=== PATIENT | female | born 2000 | race Caucasian/White ===

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

== ENCOUNTER 2019-07-11 07:50 | Emergency (ER) | payer OTHER ==
[2019-07-11 08:43] LABS: Bilirubin Negative (Negative); Blood, Urine Negative (Negative); Clarity Clear (Clear); Glucose, Urine (Dipstick) Negative (Negative); Leukocyte Negative (Negative); Nitrite Negative (Negative); Protein, Urine (Dipstick) Negative (Neg-Trace); Urobilinogen 0.2 mg/dL (Less than 2)
[2019-07-11 08:50] LABS: #Basophils 0.1 thou/uL (0.0-0.2); #Eosinphils 0.1 thou/uL (0.0-0.7); #Monocytes 0.6 thou/uL (0.11-0.59); %Eosinophils 1.2 % (0.0-10.0); %Lymphocytes 23.1 % (28.0-48.0); %Neutrophils 67.6 % (31.0-61.0); Hemoglobin 14.5 g/dL (12.0-16.0); Mean Corpuscular HGB CONC 34.2 g/dL (32.0-36.0); Mean Corpuscular Hemoglobin 30.6 pg (25.0-35.0); Mean Corpuscular Volume 89.4 fL (78.0-98.0); Mean Platelet Volume 7.6 fL (7.4-10.4); Platelet Count 243 thou/uL (130-400); RBC Distribution Width 11.7 % (11.5-14.5); Red Blood Cell (RBC) Count 4.74 mill/uL (4.00-5.20); White Blood Cell (WBC) Count 8.8 thou/uL (4.8-10.8)
--- NOTE | 2019-07-11 09:07 | ULT ---
Exam: Transabdominal and endovaginal pelvic ultrasound HISTORY:. Pelvic pain. COMPARISON: None TECHNIQUE: Transabdominal and endovaginal imaging of the pelvis is performed. Ovaries are interrogate d with grayscale, color flow, Doppler imaging and spectral wave form analysis FINDINGS: Uterus: No myometrial masses. Uterus measurin.0 x 5.8 x 5.2 cm. Endometrium: Within the endometrium, there is a gestational sac, yolk sac and pole. [place]-rump length is 0.46 cm corresponding to gestational age of 6 weeks and 1 day heart tones with a rate of 111 bpm No subchorionic hemorrhage. Free fluid: None Left ovary: Normal echotexture. Left ovary measurements: 3.8 x 2.2 x 2.2 cm Right ovary: Normal echotexture Right ovary measurement: 2.8 x 1.8 x 2.9 cm Ovarian Doppler: There is vascular flow to the left and right ovary. IMPRESSION: 1. Single intrauterine gestation with heart tones. Gestational age by crown-rump length is 6 we eks and 1 day.
== END 2019-07-11 09:26 | disposition home or self-care (01) ==
LOC: SCSER 07:50
DX: O99.89 Other specified diseases and conditions complicating pregnancy, childbirth and the puerperium (principal); M25.552 Pain in left hip; O99.341 Other mental disorders complicating pregnancy, first trimester; F41.9 Anxiety disorder, unspecified; O99.311 Alcohol use complicating pregnancy, first trimester; F17.210 Nicotine dependence, cigarettes, uncomplicated; Z3A.01 Less than 8 weeks gestation of pregnancy
CPT/HCPCS: 76856; 81003; 84702; 85025; 86900; 86901

== ENCOUNTER 2019-08-16 09:54 | Emergency (ER) | payer MEDICAID, SELFPAY ==
[2019-08-16] MEDS ORDERED: Metoclopramide HCl 10 MG TAB ONE (10:42)
== END 2019-08-16 12:17 | disposition home or self-care (01) ==
LOC: SCSER 09:54
DX: O21.9 Vomiting of pregnancy, unspecified (principal); O99.611 Diseases of the digestive system complicating pregnancy, first trimester; K21.9 Gastro-esophageal reflux disease without esophagitis; O99.341 Other mental disorders complicating pregnancy, first trimester; F41.9 Anxiety disorder, unspecified; Z87.891 Personal history of nicotine dependence; Z3A.12 12 weeks gestation of pregnancy
CPT/HCPCS: 99283; J8597

== ENCOUNTER 2019-09-20 11:06 | Emergency (ER) | payer OTHER, SELFPAY | END 2019-09-20 11:45 | disposition home or self-care (01) | LOC: SCSER 11:06 | DX: O99.512 Diseases of the respiratory system complicating pregnancy, second trimester (principal); J06.9 Acute upper respiratory infection, unspecified; O99.342 Other mental disorders complicating pregnancy, second trimester; F41.9 Anxiety disorder, unspecified; O99.612 Diseases of the digestive system complicating pregnancy, second trimester; K21.9 Gastro-esophageal reflux disease without esophagitis; Z3A.21 21 weeks gestation of pregnancy; Z87.891 Personal history of nicotine dependence | CPT/HCPCS: 99283 ==

== ENCOUNTER 2019-09-24 11:25 | Emergency (ER) | payer OTHER | END 2019-09-24 11:59 | disposition home or self-care (01) | LOC: SCSER 11:25 | DX: O99.89 Other specified diseases and conditions complicating pregnancy, childbirth and the puerperium (principal); R09.81 Nasal congestion; O99.612 Diseases of the digestive system complicating pregnancy, second trimester; K21.9 Gastro-esophageal reflux disease without esophagitis; O99.342 Other mental disorders complicating pregnancy, second trimester; F41.9 Anxiety disorder, unspecified; Z87.891 Personal history of nicotine dependence; Z3A.18 18 weeks gestation of pregnancy ==

== ENCOUNTER 2019-12-04 12:17 | Inpatient (IN) | payer OTHER ==
[2019-12-04 13:54] VITALS: BP 121/67; TEMP 98.3
[2019-12-04 13:57] VITALS: BMI 37.3
[2019-12-04] MEDS ORDERED: hydrALAZINE 20 MG/ML VIAL SLOW IVP PRN (15:02)
--- NOTE | 2019-12-04 15:05 | PDOC.LDHP ---
Labor and Delivery H&P Chief complaint: other (lightheaded) HPI: 19 y/o G1at 28w0d, patient of Dr. Machuca, presents with lightheadedness and swelling of bilateral feet today at work. Reports drinking lots of water. Denies VB, LOF, ctx, SOB, or decreased FM. ROS neg for HEENT, cv, pulm, gi, gu, neuro, psych, skin, musculoskeletal or constitutional symptoms other than mentioned above. OB History Details: First Current complications: none Past Medical History: None Current medications: pre- vitamins Previous surgical history: none Allergies/Adverse Reactions: Allergies Allergy/AdvReac Type Severity Reaction Status Date / Time No Known Allergies Allergy Unverified 12/04/19 13:56 Social history: none - Physical Exam Vital signs reviewed and normal: yes General: NAD, resting Lungs: nonlabored breathing Abdomen: gravid Extremeties: trace edema FHT: category 1 (125, mod variability, + accels, no decels) [place] contractions every: none - OB Labs Additional Labs: Blood sugar 90 - Assessment 19 y/o G1 at 28w0d with lightheadedness at work. Normal blood sugar. O2 saturation 98-100% on RA, pulse normal, BP normal. Appears well. Leg edema equal bilaterally and trace to 1+. status reassuring with reactive NST. - Plan -: Advised to stay well hydrated, eat regularly. Keep appointment for as scheduled.
[2019-12-05] MEDS ORDERED: FLU VACC QS2019-20(6MOS UP)/PF 60 MCG/0.5 ML SYRINGE IM ONE (09:00)
== END 2019-12-04 15:00 | disposition home or self-care (01) | DRG 833 ==
LOC: ERS 12:17 → L&D/OP 13:17 → L&D 13:43
PROVIDERS: ADMIT Student in an Organized Health Care Education/Training Program; ATTEND Student in an Organized Health Care Education/Training Program
DX: O26.893 Other specified pregnancy related conditions, third trimester (principal); Z3A.28 28 weeks gestation of pregnancy; R42 Dizziness and giddiness; O12.03 Gestational edema, third trimester
CPT/HCPCS: 36416; 99282

== ENCOUNTER 2020-01-25 23:04 | Day surgery (SDC) | payer OTHER ==
[2020-01-25 23:42] VITALS: BP 131/73; TEMP 98; BMI 38.2
[2020-01-25] MEDS ORDERED: hydrALAZINE 20 MG/ML VIAL SLOW IVP PRN (23:49)
[2020-01-25] MEDS ORDERED: Acetaminophen 500 MG TAB PO SCH (23:59)
--- NOTE | 2020-01-26 00:48 | PDOC.FPROB ---
FMR OB H&P: HPI - History of Present Illness Chief Complaint: Back Pain Indentification: 19 yo @ 35 wks History of Present Illness: Pt comes in with back pain that has been present all day. Reports has had pain the last few days. Reports pain in lower back. Reports FM. Denies any ctx, LOF or vaginal bleeding. Denies any urinary sx's. Denies any n/v. Reports having heartburn throughout . Denies any vision changes or headaches. Pt has not taken anything for back pain. Primary Care Physician: Sven FMR OB H&P: Current - Care : 1 Para: 0 Gestational age: 35 - OB Labs Blood type: O RH: positive HIV: negative RPR: negative HepBsAg: negative Rubella: immune Quad screen: unknown Gonorrhea: unknown Chlamydia: unknown GBS: unknown FMR OB H&P: History - Past Medical History PMH: None - OB History OB History: N/A - [place] History [place] History: Denies any hx of STD or abnormal Pap - Surgical History Sx History: N/A - Social History Social History: Reports smoking before knowing was . Has quit since. Denies any drinking or illicit drug use - Family History Family History: Noncontributory FMR OB H&P: Medications - Current Home Medications: Medication Instructions Recorded Confirmed Type Vitamin 1 tablet PO DAILY 12/04/19 01/25/20 History Allergies/Adverse Reactions: Allergies Allergy/AdvReac Type Severity Reaction Status Date / Time No Known Allergies Allergy Verified 01/25/20 23:35 FMR OB H&P: ROS - Review of Systems General: denies: fever/chills, weight/appetite/sleep changes, night sweats Eyes: denies: vision changes ENT: denies: nasal congestion, rhinorrhea Respiratory: denies: cough, congestion, shortness of breath Gastrointestinal: reports: indigestion. denies: abdominal pain, bloating, cramping, nausea, vomiting, diarrhea, constipation Genitourinary (Female): denies: incontinence, dysuria, hematuria, polyuria, hesitancy, vaginal discharge, vaginal pain, vaginal bleeding, contractions, vaginal pressure Musculoskeletal: reports: pain (back pain). denies: stiffness, tenderness Neurologic: denies: numbness, seizures, weakness Integumentary: denies: itching, rash Psychological: denies: depression, anxiety FMR OB H&P: Vital Signs - Maternal Vital signs: Vital Signs - First Documented Temp Pulse Resp BP Pulse Ox 98.0 F 104 H 16 131/73 110 H 01/25/20 23:34 01/25/20 23:34 01/25/20 23:34 01/25/20 23:34 01/25/20 23:34 - Heart Tones Baseline: 145 Variability: moderate Acceleration: present Deceleration: absent Category: category 1 [place] contractions every: None noted FMR OB H&P: Physical Exam - Physical Exam General: NAD, awake, alert and oriented HEENT: normocephalic and atraumatic, grossly normal vision, grossly normal hearing Neck: supple, FROM, trachea midline Heart: RRR, normal S1/S2, no murmurs/rubs/gallops, pulses present, no edema General: CTAB, no respiratory distress, good air movement, no rales/rhonchi, no wheezing Abdomen: soft, gravid, fundus(cm), non-tender, bowel sound present, no masses Musculoskeletal: normal gait and station, FROM in all four extremities Neurological: sensation to pain,touch and proprioception grossly normal Psychiatric: normal mood and affect FMR OB H&P: A/P - Problem List (1) Status: Acute (2) Round ligament pain Status: Acute Code(s): N94.9 - UNSP COND ASSOC W FEMALE GENITAL ORGANS AND MENSTRUAL CYCLE Disposition: -Given 1g tylenol. Advised to take for pain as needed. -Advised pain likely related to back strain and round ligament pain. Advised to rest as needed. Take pain medicine as needed. -Advised to stay well hydrated. -Discussed return precautions Discussion: Date/Time: 01/26/2045 This H&P was discussed with [] and [] who agree with the above documentation and plan. Addendum - Attending - Attending Attestation Date/Time: 01/26/20625 I personally evaluated the patient and discussed the management with Dr. Berry. I agree with the History, Examination, Assessment and Plan documented above.
== END 2020-01-26 00:34 | disposition home or self-care (01) ==
LOC: L&D/OP 23:04
PROVIDERS: ATTEND Student in an Organized Health Care Education/Training Program
DX: O99.89 Other specified diseases and conditions complicating pregnancy, childbirth and the puerperium (principal); M54.5 Low back pain; Z3A.35 35 weeks gestation of pregnancy
CPT/HCPCS: 99282

== ENCOUNTER 2020-02-19 17:32 | Inpatient (IN) | payer OTHER ==
[~2020-02-19 17:32] MED LIST: Bupivacaine/Epinephrine 0.25% 30 ML VIAL ONE
[2020-02-19] MEDS ORDERED: Acetaminophen 500 MG TAB PO PRN (17:57)
[2020-02-19] MEDS ORDERED: HYDROcodone/Acetaminophen 5/325 mg Tablet PO PRN (17:57)
[2020-02-19] MEDS ORDERED: Diphenoxylate HCl/Atropine Tablet PO PRN (17:57)
[2020-02-19] MEDS ORDERED: Promethazine HCl 25 MG/ML VIAL IM PRN (17:57)
[2020-02-19] MEDS ORDERED: Ibuprofen 800 MG TAB PO PRN (17:57)
[2020-02-19] MEDS ORDERED: hydrALAZINE 20 MG/ML VIAL SLOW IVP PRN (17:57)
[2020-02-19] MEDS ORDERED: Misoprostol 200 MCG TAB PR PRN (17:57)
[2020-02-19] MEDS ORDERED: Carboprost 250 MCG/ML AMP IM PRN (17:57)
[2020-02-19] MEDS ORDERED: Butorphanol Tartrate 1 MG/ML VIAL SLOW IVP PRN (17:57)
[2020-02-19] MEDS ORDERED: Lidocaine 1% (PF) 30 ML VIAL SC PRN (17:57)
[2020-02-19] MEDS ORDERED: Methylergonovine 0.2 MG/ML VIAL IM PRN (17:57)
[2020-02-19] MEDS ORDERED: Ondansetron PF 4 MG/2 ML Vial IVP PRN (17:57)
[2020-02-19 18:03] VITALS: BMI 39.4
[2020-02-19] MEDS: Misoprostol 100 MCG TAB VAG SCH ×2 (18:40→22:04)
[2020-02-19 18:43] LABS: Mean Corpuscular Volume 88.1 fL (78.0-98.0); Mean Platelet Volume 8.9 fL (7.4-10.4); Platelet Count 239 thou/uL (130-400); RBC Distribution Width 12.5 % (11.5-14.5); Red Blood Cell (RBC) Count 4.34 mill/uL (4.00-5.20); White Blood Cell (WBC) Count 12.6 thou/uL (4.8-10.8)
[2020-02-19] MEDS: Lactated Ringer's 1,000 ML IV SCH (18:51)
[2020-02-19] MEDS: NS w/ Oxytocin 10 units 500 ML IV SCH (19:10)
[2020-02-19 19:21] LABS: Syphilis Antibody Nonreactive (Nonreactive); Syphilis Antibody Index 0.03 S/CO (<1.00 Non-Reactive)
[2020-02-19 19:22] LABS: HBSAg Index 0.33 S/CO (0-0.99); Hep B Surf Ag Non-Reactive S/CO (NonReactive)
[2020-02-20] MEDS: Lactated Ringer's 1,000 ML IV SCH ×4 (00:24→15:01)
[2020-02-20] MEDS: Misoprostol 100 MCG TAB VAG SCH ×6 (01:18→19:39)
--- NOTE | 2020-02-20 09:27 | PDOC.LDHP ---
Labor and Delivery H&P Chief complaint: scheduled induction HPI: 19yo at 39w by LMP here for elective IOL. S>D on sono. s/p cytotec x 3 overnight, painful ctx. Current gestational age (weeks): 39 Due date: 02/26/20 Dating criteria: last menstrual period Grav: 1 Para: 0 Current complications: none Abnormal US findings: No (EFW 95%ile) Past Medical History: hx of anxiety and depression Current medications: pre-rd vitamins Previous surgical history: none Allergies/Adverse Reactions: Allergies Allergy/AdvReac Type Severity Reaction Status Date / Time No Known Allergies Allergy Verified 01/25/20 23:35 Social history: none - Physical Exam Vital signs reviewed and normal: yes General: NAD Heart: RRR Lungs: CTAB Abdomen: gravid Extremeties: no edema FHT: category 1 [place] contractions every: 2-3min - Vaginal Exam cm dilated: 3 Effacement: 50% Station: -3 (arom clear) - OB Labs Blood type: O RH: positive Antibody Screen: negative HIV: negative RPR: negative HEPSAg: negative 1 hour GCT: negative GBS: negative Urine drug screen: negative - Assessment L&D Assessment: elective induction at term - Plan Plan: admit to L&D, cervical ripening, labor augmentation if indicated, informed consent obtained, anesthesia consult for pain management
[2020-02-20] MEDS ORDERED: Fentanyl 4 mcg/Bup 0.1% Cadd 100 ML ONE (10:18)
[2020-02-20] MEDS: NS w/ Oxytocin 10 units 500 ML IV SCH (10:44)
[2020-02-20] MEDS ORDERED: Fentanyl 100 MCG/2 ML VIAL ONE (10:58)
[2020-02-20] MEDS ORDERED: NS / Oxytocin 40 units/1000ml 1,000 ML ONE (17:00)
[2020-02-20] MEDS ORDERED: Lidocaine 1% (PF) 30 ML VIAL ONE (17:00)
--- NOTE | 2020-02-20 19:21 | PDOC.OPDEL ---
OB Operative/Delivery Note Delivery Dr/Surgeon: Sven Assist: n/a Pre-Delivery Diagnosis: elective induction Procedure/Post Delivery Dx: spontaneous vaginal delivery Weeks gestation: 39 Anesthesia: epidural - Findings A Sex: male - 1 min: 8 - 5 min: 9 - Additional Findings/Plan Placenta delivered: spontaneous Repaired Obstetrical Laceration: 2nd degree Estimated blood loss: 500 Post delivery plan: routine recovery
[2020-02-20] MEDS: NS / Oxytocin 40 units/1000ml 1,000 ML IV PRN ×2 (19:38→20:22)
[2020-02-20] MEDS ORDERED: Benzocaine-Menthol 82.5 ML CAN TOP PRN (20:24)
[2020-02-20] MEDS ORDERED: HYDROcodone/Acetaminophen 5/325 mg Tablet PO PRN (20:24)
[2020-02-20] MEDS ORDERED: Preparation H Ointment 28 GM TUBE PR PRN (20:24)
[2020-02-20] MEDS ORDERED: Milk Of Magnesia 30 ML UDCUP PO PRN (20:24)
[2020-02-20] MEDS ORDERED: hydrALAZINE 20 MG/ML VIAL SLOW IVP PRN (20:24)
[2020-02-20] MEDS ORDERED: Ondansetron PF 4 MG/2 ML Vial IVP PRN (20:24)
[2020-02-20] MEDS ORDERED: Lanolin Ointment 7 GM TUBE TOP PRN (20:24)
[2020-02-20] MEDS ORDERED: diphenhydrAMINE 25 MG CAP PO PRN (20:24)
[2020-02-20] MEDS ORDERED: Bisacodyl 10 MG SUPP PR PRN (20:24)
[2020-02-20] MEDS ORDERED: Promethazine HCl 25 MG/ML VIAL IM PRN (20:24)
[2020-02-20] MEDS ORDERED: NS / Oxytocin 40 units/1000ml 1,000 ML IV SCH (20:24)
[2020-02-20] MEDS: Docusate Calcium (SURFAK) 240 MG CAP PO SCH (21:00)
[2020-02-20] MEDS: Ibuprofen 800 MG TAB PO SCH (22:21)
[2020-02-21] MEDS: Ibuprofen 800 MG TAB PO SCH ×3 (06:03→21:11)
[2020-02-21] MEDS: HYDROcodone/Acetaminophen 5/325 mg Tablet PO PRN ×3 (07:56→23:07)
[2020-02-21] MEDS ORDERED: Adacel (T-DAP) 0.5 ML SYRINGE IM ONE (09:00)
[2020-02-21] MEDS: Ferrous Sulfate 325 MG TAB PO SCH ×2 (09:48→15:59)
[2020-02-21] MEDS: Prenatal Vitamin 1 TAB PO SCH (10:42)
[2020-02-21] MEDS: Docusate Calcium (SURFAK) 240 MG CAP PO SCH ×2 (10:43→21:11)
--- NOTE | 2020-02-21 11:14 | PDOC.PP ---
Post Progress Note Post Day #: 1 PO intake tolerated: yes Flatus: yes Ambulation: yes Vital Signs (12 hours) Temp Pulse Resp BP Pulse Ox 02/21/20 08:01 98.0 F 73 20 122/70 98 02/21/20 04:12 98.4 F 80 18 129/65 97 02/21/20 00:12 98.8 F 81 18 134/61 98 Weight Weight 230 lb - Physical Examination General: NAD Respiratory: non-labored breathing Abdominal: no distention, appropriately TTP Fundus firm & at: umb Skin: no rash Neurological: no gross focal deficits Psychiatric: normal affect Result Diagrams: 02/19/20 18:34 Additional Labs: Post Labs Blood Type O POSITIVE 02/19/20 18:34 Hep Bs Antigen Non-Reactive S/CO (NonReactive) 02/19/20 18:34
[2020-02-22] MEDS: Ibuprofen 800 MG TAB PO SCH ×2 (05:26→13:50)
[2020-02-22 06:56] LABS: Hemoglobin 10.8 g/dL (12.0-16.0); Mean Corpuscular HGB CONC 33.9 g/dL (32.0-36.0); Mean Corpuscular Hemoglobin 30.7 pg (25.0-35.0); Mean Corpuscular Volume 90.5 fL (78.0-98.0); Mean Platelet Volume 8.1 fL (7.4-10.4); Platelet Count 190 thou/uL (130-400); RBC Distribution Width 12.8 % (11.5-14.5); Red Blood Cell (RBC) Count 3.51 mill/uL (4.00-5.20); White Blood Cell (WBC) Count 10.9 thou/uL (4.8-10.8)
[2020-02-22 07:50] VITALS: BP 122/65; TEMP 98.6
[2020-02-22] MEDS: Ferrous Sulfate 325 MG TAB PO SCH ×2 (08:19→17:53)
[2020-02-22] MEDS: Docusate Calcium (SURFAK) 240 MG CAP PO SCH ×2 (08:39→19:21)
[2020-02-22] MEDS: Prenatal Vitamin 1 TAB PO SCH (08:39)
[2020-02-22] MEDS: HYDROcodone/Acetaminophen 5/325 mg Tablet PO PRN ×3 (08:52→19:21)
--- NOTE | 2020-02-22 09:30 | DIS ---
DATE OF ADMISSION: 02/19/2020 DATE OF DISCHARGE: 02/22/2020 ADMISSION DIAGNOSES: 1. Intrauterine at 39 weeks. 2. Elective induction of labor. DISCHARGE DIAGNOSES: 1. Intrauterine at 39 weeks. 2. Elective induction of labor. PROCEDURE PERFORMED: Term spontaneous vaginal delivery. HOSPITAL COURSE: The patient is a 19-year-old, G1 now P1 female, presenting to Labor and Delivery at 39 weeks for an elective induction of labor. Her labor course was uncomplicated, resulting in a term spontaneous vaginal delivery. For complete details, please refer to the delivery note. Today is day 2. She has been tolerating p.o., having good pain control and voiding on her own with decreased lochia. The patient has been taking hydrocodone for perineal pain as she has had a second-degree laceration and cramping. PHYSICAL EXAMINATION: VITAL SIGNS: Today, blood pressure is 122/65, temperature 98.6, pulse is 72, respiratory rate 20, saturating 99% on room air. GENERAL: She appears to be in no acute distress. She is alert, oriented, cooperative, and pleasant to interact with. HEENT: Head is normocephalic, atraumatic. ABDOMEN: Fundus is firm at the umbilicus. EXTREMITIES: Nontender, nonedematous. LABORATORY DATA: Hemoglobin dropped from 13 to 10.8, hematocrit 38.3 to 31.8, platelets at 190,000 at the time of discharge. DISCHARGE INSTRUCTIONS: The patient is being discharged to home. She has instructions to follow up with Dr. Machuca in 6 weeks or sooner if she experiences fever, increasing pain or bleeding. The patient's baby is going under Bili-lights phototherapy today and is being discharged, but may go to bed and breakfast for the short term. She will be discharged with ibuprofen and she is being given at her request Tylenol No. 3 #10 to help assist in the transition with her perineal pain, to be taken one tablet every 4 hours as needed. Job ID: [id number]
== END 2020-02-22 19:40 | disposition home or self-care (01) | DRG 807 ==
LOC: L&D 17:32 → 3SE 02-20 22:18
PROVIDERS: ADMIT Student in an Organized Health Care Education/Training Program; ATTEND Student in an Organized Health Care Education/Training Program
PROC: 10E0XZZ Delivery of Products of Conception, External Approach (ICD-10-PCS; principal; 2020-02-20)
PROC: 0KQM0ZZ Repair Perineum Muscle, Open Approach (ICD-10-PCS; 2020-02-20)
PROC: 10907ZC Drainage of Amniotic Fluid, Therapeutic from Products of Conception, Via Natural or Artificial Opening (ICD-10-PCS; 2020-02-20)
PROC: 3E033VJ Introduction of Other Hormone into Peripheral Vein, Percutaneous Approach (ICD-10-PCS; 2020-02-20)
PROC: 0U7C7ZZ Dilation of Cervix, Via Natural or Artificial Opening (ICD-10-PCS; 2020-02-20)
PROC: 3E0P7VZ Introduction of Hormone into Female Reproductive, Via Natural or Artificial Opening (ICD-10-PCS; 2020-02-20)
DX: O70.1 Second degree perineal laceration during delivery (principal); Z37.0 Single live birth; Z3A.39 39 weeks gestation of pregnancy
CPT/HCPCS: 36415; 51702; 85027; 86780; 86850; 86900; 86901; 87340; J0595; J2001; J2590; J3010

== ENCOUNTER 2023-12-09 01:39 | Emergency (ER) | payer SELFPAY | END 2023-12-09 11:18 | disposition short-term general hospital (02) | LOC: ERS 01:39 | DX: T45.0X2A Poisoning by antiallergic and antiemetic drugs, intentional self-harm, initial encounter (principal); Z87.891 Personal history of nicotine dependence | CPT/HCPCS: 93005 ==